=== PATIENT | female | born 1995 | race Caucasian/White ===

== ENCOUNTER 2017-12-03 20:45 | Emergency (ER) | payer SELFPAY ==
[2017-12-03 21:04] VITALS: BP 130/81
--- NOTE | 2017-12-03 21:34 | UC ---
Lower Extremity/Ankle HPI - HPI Summary HPI Summary: 22 yo female with progressively worsening right foot pain x a day now causing her to limp no trauma - History of Current Complaint Chief Complaint: UCLowerExtremity Stated Complaint: R FOOT PAIN Time Seen by Provider: 12/03/17 21:02 Hx Obtained From: Patient Hx Last Menstrual Period: nexplanon Onset/Duration: Gradual Onset, Lasting Hours Severity Initially: Mild Severity Currently: Moderate Pain Intensity: 6 Pain Scale Used: 0-10 Numeric Aggravating Factor(s): Standing, Ambulation Alleviating Factor(s): Rest, Elevation Able to Bear Weight: Yes Feet (Multiple View): 1 - diffuse tenderness/no redness or swelling - Allergies/Home Medications Allergies/Adverse Reactions: Allergies Allergy/AdvReac Type Severity Reaction Status Date / Time No Known Allergies Allergy Verified 12/03/17 21:04 Home Medications: Home Medications Etonogestrel [Nexplanon] 68 mg IMPLANT ONCE 12/03/17 [History Confirmed 12/03/17 ] Ibuprofen TAB* [Motrin TAB* 400 MG] 400 mg PO Q6H PRN 12/03/17 [History Confirmed 12/03/17] PMH/Surg Hx/FS Hx/Imm Hx Previously Healthy: Yes - Surgical History Surgical History: Yes Surgery Procedure, Year, and Place: CHOLECYSTECTOMY - Family History Known Family History: Positive: Hypertension, Diabetes - Social History Alcohol Use: Rare Substance Use Type: None Smoking Status (MU): Never Smoked Tobacco Review of Systems Constitutional: Negative Skin: Negative Eyes: Negative ENT: Negative Respiratory: Negative Cardiovascular: Negative Gastrointestinal: Negative Genitourinary: Negative Motor: Negative Neurovascular: Negative Musculoskeletal: Arthralgia Neurological: Negative Psychological: Negative Is Patient Immunocompromised?: No All Other Systems Reviewed And Are Negative: Yes Physical Exam Triage Information Reviewed: Yes Appearance: Well-Appearing, No Pain Distress, Well-Nourished Vital Signs: Initial Vital Signs Temp 98.8 F 12/03/17 20:57 Pulse 81 12/03/17 20:57 Resp 16 12/03/17 20:57 BP 130/81 05/17/18 20:57 Pulse Ox 99 12/03/17 20:57 Vital Signs Reviewed: Yes Eyes: Positive: Conjunctiva Clear ENT: Positive: Hearing grossly normal. Negative: Nasal congestion, Nasal drainage, Muffled voice, Hoarse voice Neck: Positive: Supple Respiratory: Positive: Lungs clear, Normal breath sounds, No respiratory distress Cardiovascular: Positive: RRR, No Murmur Musculoskeletal: Positive: ROM Intact, No Edema Neurological Exam: Normal Neurological: Positive: Alert Psychological Exam: Normal Diagnostics - Radiology No standard instances Xray Interpretation: No Acute Changes Radiology Interpretation Completed By: ED Physician Lower Extremity Course/Dx - Differential Dx/Diagnosis Provider Diagnoses: right foot metatarsalgia/overuse injury Discharge - Sign-Out/Discharge Documenting (check all that apply): Discharge/Admit/Transfer - Discharge Plan Condition: Stable Disposition: HOME Patient Education Materials: Metatarsalgia (DC) Forms: *Work Release Referrals: Toribio Coulter MD [Medical Doctor] - 5 Days (if not better) Additional Instructions: advil or aleve for pain post op shoe recheck next week if not better rest ice elevation - Billing Disposition and Condition Condition: STABLE Disposition: HOME
--- NOTE | 2017-12-03 21:37 | RAD ---
Indication: Right foot pain. 3 views of the right foot demonstrates no fracture. No other bone or joint abnormality. IMPRESSION: No definite fracture of the right foot is noted.
== END 2017-12-03 21:47 | disposition home or self-care (01) ==
LOC: UCCORT 20:45
DX: M70.871 Other soft tissue disorders related to use, overuse and pressure, right ankle and foot (principal); Y93.9 Activity, unspecified
CPT/HCPCS: 99203; G0463